=== PATIENT | male | born 1955 | race African-American/Black ===

== ENCOUNTER 2018-03-04 04:30 | Emergency (ER) | payer OTHER ==
[~2018-03-04 04:30] MED LIST: CYCL-36 PO; DICL75 PO; Z.0.NO CURRENT MEDS
[2018-03-04 04:32] VITALS: BP 219/99; PULSE 72; RESP 16; TEMP 98.8; O2SAT 94
[2018-03-04] MEDS ORDERED: KETOROLAC TROMETHAMINE 60 MG/2 ML (IM) VIAL IM ONE (05:30)
[2018-03-04] MEDS ORDERED: DIAZEPAM 10 MG TAB PO ONE (05:30)
[2018-03-04 06:09] VITALS: BP 174/97; PULSE 79; RESP 18; O2SAT 97
[2018-03-04] MEDS ORDERED: DIAZ5 PO (06:27)
--- NOTE | 2018-03-04 06:28 | PD ---
HPI Chief Complaint: Back/ Neck Pain or Injury Time Seen by Provider: 05:06 Travel History International Travel<30 days: No Contact w/Intl Traveler<30days: No Traveled to known affect area: No History of Present Illness HPI Patient is a 62-year-old male comes in complaining of left-sided back pain that radiates down his left leg. He says it is sciatica pain. He says he has had this pain before and it is similar. He denies any injury. He says it has been going on for 4 days. He is tried taking ibuprofen at home without relief. He says he feels a pressure in his left foot. He says he has had all of these symptoms before related to the sciatica. He denies any urinary symptoms. He denies numbness or tingling. He denies fever or chills. Severity is mild to moderate. [facility] Past Medical History Medical History: Denies Significant Hx Diminished Hearing: No Past Surgical History Other Surgery: Yes (HERNIA REPAIR ) Social History Alcohol Use: Yes (RARE) Tobacco Use: No Substance Use: No Allergies-Medications (Allergen,Severity, Reaction): Coded Allergies: No Known Allergies (Unverified , 05/14/13) Reported Meds & Prescriptions Reported Meds & Active Scripts Active Flexeril (Cyclobenzaprine HCl) 10 Mg Tab 10 Mg PO Q8HPRN Diclofenac Sodium 75 Mg Tab 75 Mg PO BIDPRN Reported No Current Meds (Miscellaneous Medication) [facility] Review of Systems General / Constitutional: No: Fever, Chills HENT: No: Headaches, Lightheadedness Cardiovascular: No: Chest Pain or Discomfort Respiratory: No: Shortness of Breath Gastrointestinal: No: Nausea, Vomiting Musculoskeletal: Positive: Pain Skin: No Rash, No Itching Neurologic: No: Weakness, Dizziness, Sensory Disturbance Physical Exam Narrative GENERAL: Awake and alert, no acute distress. SKIN: Focused skin assessment warm/dry. No wounds or signs of infection. HEAD: Atraumatic. Normocephalic. EYES: Pupils equal and round. No scleral icterus. ENT: Mucous membranes pink and moist. NECK: Trachea midline. No JVD. CARDIOVASCULAR: Regular rate and rhythm. No murmur appreciated. RESPIRATORY: No accessory muscle use. Clear to auscultation. Breath sounds equal bilaterally. MUSCULOSKELETAL: No obvious deformities. No clubbing. No cyanosis. No edema. Pain with movement of his left leg. No tenderness to palpation of the spine. Pedal pulses intact. NEUROLOGICAL: Awake and alert. No obvious cranial nerve deficits. Motor grossly within normal limits. Normal speech. Sensation intact. Data Data Last Documented VS Vital Signs Date Time Temp Pulse Resp B/P (MAP) Pulse Ox O2 Delivery O2 Flow Rate FiO2 03/04/18 06:09 79 18 174/97 (122) 97 Room Air 03/04/18 04:32 98.8 Orders Orders Ketorolac Inj (Toradol Inj) (03/04/18 05:30) Diazepam (Valium) (03/04/18 05:30) [facility] Medical Decision Making Medical Screen Exam Complete: Yes Emergency Medical Condition: Yes Medical Record Reviewed: Yes Differential Diagnosis Muscle strain versus sciatica versus arthritis Narrative Course Patient is a 62-year-old male who comes in complaining of left lower back pain that radiates down his left leg. He says this feels like his sciatica. Exam shows pain with movement of the left leg. Patient given Toradol and Valium. He is advised to continue using ibuprofen. Given a prescription for a few Valium to take as needed. Advised follow-up with a primary care doctor. Advised his blood pressure is elevated today and he could require blood pressure medication. Advised return anytime for any worsening symptoms. Diagnosis Primary Impression: Back pain Qualified Codes: M54.42 - Lumbago with sciatica, left side Patient Instructions: Back Pain (ED), General Instructions Additional Instructions: Take Ibuprofen as needed for pain. Take Valium for muscle spasm. Be careful as it may make you drowsy. Follow up with a primary care physician. Return to the ED as needed for any worsening symptoms. Scripts Diazepam (Valium) 5 Mg Tab 5 MG PO TID Y for MUSCLE SPASM, #10 TAB 0 Refills Prov: Bridgett You MD 03/04/18 Disposition: 01 DISCHARGE HOME Condition: Stable Bridgett oYu MD Mar 04, 2018 06:27
== END 2018-03-04 06:37 | disposition home or self-care (01) ==
LOC: NEPC 04:30
DX: M54.42 Lumbago with sciatica, left side (principal)
CPT/HCPCS: 96372; 99283; J1885

== ENCOUNTER 2018-03-06 06:50 | Emergency (ER) | payer OTHER ==
[~2018-03-06 06:50] MED LIST changes: +DIAZ5 PO
[2018-03-06 07:02] VITALS: BP 189/86; PULSE 72; RESP 16; TEMP 98.3; O2SAT 98
[2018-03-06] MEDS ORDERED: HYDR-3516 PO (07:23)
[2018-03-06] MEDS ORDERED: PRED20 PO (07:23)
[2018-03-06] MEDS ORDERED: KETOROLAC TROMETHAMINE 60 MG/2 ML (IM) VIAL IM ONE (07:30)
[2018-03-06] MEDS ORDERED: predniSONE 20 MG TAB PO ONE (07:30)
--- NOTE | 2018-03-06 07:30 | PD ---
HPI Chief Complaint: Back/ Neck Pain or Injury Time Seen by Provider: 07:13 Travel History International Travel<30 days: No Contact w/Intl Traveler<30days: No Traveled to known affect area: No History of Present Illness HPI 8-year-old -[place] male presents emergency department with ongoing left -sided sciatic symptoms. Patient was seen several days ago given Valium and to continue ibuprofen. He states he continues to have pain radiating down the left leg to the foot with a "pressure feeling" in his foot which is worse with walking. He states the pain radiates from the left lumbar region down to the foot. He denies any specific injury. He denies bowel or bladder problems. He has no recent illnesses. Patient states pain is now 8 out of 10 and worse with ambulation. He is having difficulty sleeping secondary to the pain. He has no known drug allergies. PFSH Past Medical History Diminished Hearing: No Past Surgical History Other Surgery: Yes (HERNIA REPAIR ) Social History Alcohol Use: Yes (RARE) Tobacco Use: No Substance Use: No Allergies-Medications (Allergen,Severity, Reaction): Coded Allergies: No Known Allergies (Unverified , 05/14/13) Reported Meds & Prescriptions Reported Meds & Active Scripts Active Hydrocodone-Acetaminophen 5-325 mg Tab 1 Tab PO Q6H PRN Prednisone 20 Mg Tab 20 Mg PO BID 5 Days Valium (Diazepam) 5 Mg Tab 5 Mg PO TID PRN Flexeril (Cyclobenzaprine HCl) 10 Mg Tab 10 Mg PO Q8HPRN Diclofenac Sodium Dr (Diclofenac Sod) 75 Mg Tab 75 Mg PO BIDPRN Reported No [facility]Miscellaneous Medication) [facility] General / Constitutional: No: Fever Eyes: No: Visual changes HENT: No: Headaches Cardiovascular: No: Chest Pain or Discomfort Respiratory: No: Shortness of Breath Gastrointestinal: No: Abdominal Pain Genitourinary: No: Dysuria Musculoskeletal: Positive: Arthralgias, Limited ROM, Pain Skin: No Rash Neurologic: No: Weakness Psychiatric: No: Depression Endocrine: No: Polydipsia Hematologic/Lymphatic: No: Easy Bruising Physical Exam Narrative GENERAL: Moderately obese male in mild distress. SKIN: Warm and dry. Normal color. Normal turgor. No rash. HEAD: Atraumatic. Normocephalic. EYES: Pupils equal and round. No scleral icterus. No injection or drainage. ENT: No nasal bleeding or discharge. Mucous membranes pink and moist. Pharynx is clear. Airways patent. NECK: Trachea midline. Supple and nontender. CARDIOVASCULAR: Regular rate and rhythm. RESPIRATORY: No accessory muscle use. Clear to auscultation. Breath sounds equal bilaterally. GASTROINTESTINAL: Abdomen soft, non-tender, nondistended. Hepatic and splenic margins not palpable. MUSCULOSKELETAL: Extremities without clubbing, cyanosis, or edema. No obvious deformities. Patient has pain with palpation along the lumbar spine on the left side extending into the sciatic notch. Patient has deep tendon reflexes bilaterally which are equal. Patient is moderate straight leg raise pain on the left at 45. Patient is able to dorsiflex and plantar flex, but has difficulty standing on the left leg secondary to pain. Patient is noted to have flat feet but I do not feel this is contributory, as his foot is not tender with palpation. NEUROLOGICAL: Awake and alert. No obvious cranial nerve deficits. Motor grossly within normal limits. Five out of 5 muscle strength in the arms and legs. Normal speech. PSYCHIATRIC: Appropriate mood and affect; insight and judgment normal. Data Data Last Documented VS Vital Signs Date Time Temp Pulse Resp B/P (MAP) Pulse Ox O2 Delivery O2 Flow Rate FiO2 03/06/18 07:02 98.3 72 16 189/86 (120) 98 Orders Orders Ketorolac Inj (Toradol Inj) (03/06/18 07:30) Prednisone (Deltasone) (03/06/18 07:30) [facility] Medical Decision Making Medical Screen Exam Complete: Yes Emergency Medical Condition: Yes Medical Record Reviewed: Yes Differential Diagnosis Left lower back pain. Sciatica. Lumbago. Narrative Course Radiographic imaging is not felt warranted based on my current history and physical. Patient is given prednisone 60 mg p.o. now. Patient is given Toradol 60 mg IM. Patient will be continued on prednisone 20 mg twice daily for 5 days. Patient is given Lortab 5/325 one every 6 hours as needed #20. Patient is given a work note for the next 2 days. Patient is to follow-up with local primary care physician or return if symptoms worsen, especially weakness. Diagnosis Primary Impression: Sciatica, left side Referrals: [facility] PO Patient Instructions: General Instructions, Lower Back Exercises (ED), Lumbar Radiculopathy (ED) Departure Forms: Work Release Enter return to work date: Mar 08, 2018 Additional Instructions: Radiographic imaging is not felt warranted based on my current history and physical. Patient is given prednisone 60 mg p.o. now. Patient is given Toradol 60 mg IM. Patient will be continued on prednisone 20 mg twice daily for 5 days. Patient is given Lortab 5/325 one every 6 hours as needed #20. Patient is given a work note for the next 2 days. Patient is to follow-up with local primary care physician or return if symptoms worsen, especially weakness. Med/Other Pt SpecificInfo: Prescription(s) given Scripts Hydrocodone-Acetaminophen (Hydrocodone-Acetaminophen) 5-325 mg Tab 1 TAB PO Q6H Y for PAIN, #20 TAB 0 Refills Prov: Chino Healy MD 03/06/18 Prednisone (Prednisone) 20 Mg Tab 20 MG PO BID for 5 Days, #10 TAB 0 Refills Prov: Chino Healy MD 03/06/18 Disposition: 01 DISCHARGE HOME Condition: Stable Sriram Paris Mar 06, 2018 07:30
== END 2018-03-06 07:49 | disposition home or self-care (01) ==
LOC: NEPK 06:50
DX: M54.32 Sciatica, left side (principal)
CPT/HCPCS: 96372; 99283; J1885; J7512